=== PATIENT | female | born 1975 | race Caucasian/White ===

== ENCOUNTER 2018-04-19 07:44 | Emergency (ER) | payer MEDICAID ==
[~2018-04-19] VITALS: Wt 71.0 kg
[2018-04-19 07:47] VITALS: BP 111/55; PULSE 78; RESP 18
[2018-04-19] MEDS ORDERED: IBUP-1542 PO (09:01)
--- NOTE | 2018-04-19 09:03 | ERD ---
ER Documentation Chief Complaint Chief Complaint LEFT HAND PAIN S/P MECHANICAL FALL HPI 42 female presents with left fourth digit pain, swelling and bruising after falling yesterday. She has no restricted range of motion with bleeding laceration. She denies symptoms other than pain in her left fourth digit. ROS All systems reviewed and are negative except as per history of present illness. Medications Home Meds Active Scripts Ibuprofen* (Motrin*) 600 Mg Tab, 600 MG PO Q6, #15 TAB Prov:LAURIE GAGE MD 04/19/18 PMhx/Soc Medical and Surgical Hx: pt denies Medical Hx, pt denies Surgical Hx Hx Alcohol Use: No Hx Substance Use: No Hx Tobacco Use: No FmHx Family History: No diabetes, No coronary disease, No other Physical Exam Vitals Vital Signs Date Temp Pulse Resp B/P (MAP) Pulse Ox O2 O2 Flow FiO2 Time Delivery Rate 04/19/18 98.1 78 18 111/55 99 07:47 (73) Physical Exam Const: No acute distress Head: Atraumatic Eyes: Normal Conjunctiva ENT: Normal External Ears, Nose and Mouth. Neck: Full range of motion. No meningismus. Resp: Clear to auscultation bilaterally Cardio: Regular rate and rhythm, no murmurs Abd: Soft, non tender, non distended. Normal bowel sounds Skin: No petechiae or rashes Back: No midline or flank tenderness Ext: No cyanosis, or edema. Bruising and swelling around the left fourth d igit PIP joint. No restricted range of motion weakness or deficits. No warmth erythema or bleeding. Neur: Awake and alert Psych: Normal Mood and Affect Procedures/MDM X-ray left ring finger 2V Interpreted by me: Bones: No fracture Joints: No dislocation Foreign body: None. Impression-normal left fourth digit x-ray Patient is placed on the left fourth digit metal splint. Patient is neurovascular intact after splint. Patient presents with signs symptoms of left fourth digit sprain. She will discharged home with splint with recommendations for primary care and orthopedic follow-up to evaluate for ligament injury. She has no current signs of fracture, dislocation, ischemia, deficits or infection. Departure Diagnosis: Primary Impression: Finger injury Encounter type: initial encounter Laterality: left Qualified Codes: S69.92XA - Unspecified injury of left wrist, hand and finger(s), initial encounter Condition: Stable Patient Instructions: Sprain Finger Referrals: NO PRIMARY,CARE PHYSICIAN (PCP) PRIYA WAITE MD Additional Instructions: X-ray read as normal. See orthopedist and primary doctor for pain or difficulty with movement next week. May have a ligament injury. Use splint for the next week or until pain resolves. Recheck sooner for fevers, redness, new symptoms. LAURIE GAGE MD Apr 19, 2018 09:03
== END 2018-04-19 09:50 | disposition home or self-care (01) ==
LOC: FTE 07:44
DX: S60.042A Contusion of left ring finger without damage to nail, initial encounter (principal); W18.39XA Other fall on same level, initial encounter; Y92.9 Unspecified place or not applicable
CPT/HCPCS: 29130; 73140; Z7502